=== PATIENT | female | born 1985 | race Two or more races ===

== ENCOUNTER 2018-12-24 07:48 | Emergency (ER) | payer SELFPAY ==
[~2018-12-24] VITALS: Ht 160 cm; Wt 93.0 kg
[~2018-12-24 07:48] MED LIST: CIPROFLOXACIN500 M2 ORAL; METRONIDAZOLE500 MG ORAL
[2018-12-24 07:52] VITALS: BP 126/93
[2018-12-24] MEDS ORDERED: NKM (07:55)
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
[2018-12-24] MEDS ORDERED: LIDODERM700 M1 TOPIC (08:20)
[2018-12-24] MEDS ORDERED: TYLENOL EXTRA500 MG ORAL (08:20)
[2018-12-24] MEDS ORDERED: ROBAXIN-750750 MG PO (08:20)
[2018-12-24 08:26] VITALS: BP 135/84
--- NOTE | 2018-12-24 08:26 | NUR ---
ED Nurse Note: Pt is cleared by Health Care Provider for discharge. DC instructions/prescription was given and explained to pt and verbalized understanding of teachings given. All medical devices such as ID band removed. Pt AAO x4, ambulatory and left with all personal belongings.
[2018-12-24] MEDS ORDERED: Methocarbamol 750mg tab ORAL ONE (08:30)
[2018-12-24] MEDS ORDERED: Acetaminophen 500mg (ES) tab ORAL ONE (08:30)
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
== END 2018-12-24 08:26 | disposition home or self-care (01) ==
LOC: EMR 08:08
DX: S16.1XXA Strain of muscle, fascia and tendon at neck level, initial encounter (principal); S39.012A Strain of muscle, fascia and tendon of lower back, initial encounter; V43.52XA Car driver injured in collision with other type car in traffic accident, initial encounter; Y92.410 Unspecified street and highway as the place of occurrence of the external cause
CPT/HCPCS: 99283